=== PATIENT | female | born 1995 | race American Indian/Alaskan Native ===

== ENCOUNTER → 2018-10-15 | Outpatient (CLI) | payer BC | END | disposition home or self-care (01) | LOC: SLR 11:00 | PROVIDERS: ATTEND Specialist | DX: G47.33 Obstructive sleep apnea (adult) (pediatric) (principal); R40.0 Somnolence; R06.83 Snoring; E66.9 Obesity, unspecified | CPT/HCPCS: 95810 ==

== ENCOUNTER 2019-01-19 08:35 | Day surgery (SDC) | payer BC ==
[2019-01-19] MEDS ORDERED: PROPOFOL 200 MG/20 ML VIAL IV ONE ×2 (09:06)
--- NOTE | 2019-01-19 09:20 | Anesthesia Day of Surgery ---
Anesthesia Day of Surgery - Day of Surgery Patient Examined: Yes Patient H&P Reviewed: Yes Patient is NPO: Yes Beta Blockers: No Cardiac Clearance: No Pulmonary Clearance: No
--- NOTE | 2019-01-19 09:37 | Anesthesia Consultation ---
Anesthesia Consult and Med Hx Date of service: 01/19/19 - Airway Anesthetic Teeth Evaluation: Good ROM Head & Neck: Adequate Mental/Hyoid Distance: Adequate Mallampati Class: Class II Intubation Access Assessment: Good - Pulmonary Exam CTA: Yes - Cardiac Exam Cardiac Exam: RRR - Pre-Operative Health Status ASA Pre-Surgery Classification: ASA3 Proposed Anesthetic Plan: MAC (Obesity , diet controlled DM , GERD for MAC)
--- NOTE | 2019-01-19 09:56 | Short Stay Summary ---
Short Stay Documentation Date of service: 01/19/19 Narrative H&P: The patient presents for diagnostic colonoscopy for recurrent hematochezia. - History Past Medical History: GERD, other (morbid obesity) Past Surgical History: No surgical history Social history: no significant social history, single - Allergies and Medications Current Medications: Allergies No Known Allergies Allergy (Verified 01/19/19 09:07) Home Medications Medication Instructions Recorded Confirmed Last Taken Type Cyclobenzaprine 10 mg PO DAILY 01/19/19 01/19/19 12/16/18 History Kelnor 1-35 28 Tablet 01/19/19 01/18/19 History Naproxen 01/19/19 12/16/18 History Omeprazole 40 mg PO DAILY 01/19/19 01/19/19 01/13/19 History Active Medications Sodium Chloride (Nacl 0.9% 1000 Ml) 1,000 mls @ 50 mls/hr IV DIRECT KATIE Last Admin: 01/19/19 09:23 Dose: 50 mls/hr Documented by: - Physical exam General appearance: no acute distress, well-nourished, obese Integumentary: no rash, no growths, no abnormal pigmentation HEENT: Atraumatic, PERRLA, EOMI, Mucous membr. moist/pink Lungs: Clear to auscultation, Normal air movement Breasts: deferred Heart: Regular rate, Normal S1, Normal S2, No murmurs Gastrointestinal: normoactive bowel sounds, no tenderness, no distended, no masses, no guarding, no organomegaly, obese Female Genitourinary: deferred Rectal Exam: normal exam-external/orifice, normal rectal tone, no mass Extremities: no ischemia, pulses intact, pulses symmetrical, No edema, normal temperature, normal color, Full ROM Neurological: Normal gait, Normal speech, Strength at 5/5 X4 ext, Normal tone, Sensation intact, Cranial nerves 3-12 NL - Brief post op/procedure progress note Date of procedure: 01/19/19 Findings: see dictation Estimated blood loss: none Pathology: none Condition: stable - Disposition Condition at discharge: Good - Discharge Diagnoses (1) Hematochezia Status: Acute Short Stay Discharge Plan Activity: other (No driving for 24 hours) Weight Bearing Status: Full Weight Bearing Diet: regular Follow up with: JEANIE LIMON [Other] - 7 Days
--- NOTE | 2019-01-19 09:58 | Operative Report ---
Operative Report Operative Report: Date of procedure: 01/19/2019 Preprocedure diagnosis: Recurrent hematochezia Post procedure diagnosis: [Normal colon and terminal ileum] Procedure: Colonoscopy to the cecum and terminal ileum Endoscopist: Dr. Glez Anesthesia: Monitored anesthesia care per anesthesia department Estimated blood loss: 0 Medications: Monitored anesthesia care. See separate report by anesthesia for details. After careful discussion of the nature and purpose of the procedure as well as details of the technique risks benefits and alternatives the patient gave consent. Please see recent history and physical from the office. The patient was placed in the left lateral decubitus position and medicated per anesthesia. A rectal exam was performed sphincter tone was normal there were no masses palpable. The Olympus colonoscope was passed transanally and advanced under continuous direct vision without difficulty to the cecum. The colon was well prepared. The cecum was normal. The ileocecal valve was normal in appearance. The scope was advanced through the valve and into the distal 10 cm of ileum. The distal terminal ileum appeared completely normal. The ascending colon was normal and on forward and retroflexed views. The transverse colon, descending colon, and sigmoid colon were normal. The rectum was normal on forward and retroflexed views. The procedure was well-tolerated overall and the patient was observed in recovery. Conclusions: Normal colonoscopy to the cecum and terminal ileum. Plan: [Observation and reassurance. Office follow-up PRN] Signed electronically: Miguel Glez M.D.
[2019-01-19] MEDS ORDERED: SODIUM CHLORIDE 0.9% 1000 ML 1,000 ML IV SCH (10:00)
[2019-01-19 10:32] VITALS: BP 122/75
--- NOTE | 2019-01-19 10:51 | Post Anesthesia Evaluation ---
- Post Anesthesia Evaluation Patient Participated: Yes Airway Patent: Yes Stable Respiratory Function: Yes Nausea/Vomiting: No Temp > 96.8F: Yes Pain Manageable: Yes Adequeate Hydration: Yes Anesthesia Complications: No Block Receding Appropriately: Not Applicable Patient on Ventilator: No
[2019-01-19] MEDS ORDERED: LIDOCAINE MPF (2%) 20 MG/1 ML VIAL 5 ML ONE (14:00)
[2019-01-19] MEDS ORDERED: WATER FOR IRRIG STERILE 250 ML BOTTLE IR ONE (14:36)
== END 2019-01-19 08:36 | disposition home or self-care (01) ==
LOC: GIO 08:35
PROVIDERS: ATTEND Internal Medicine Gastroenterology
DX: K92.1 Melena (principal); Z79.899 Other long term (current) drug therapy
CPT/HCPCS: 45378; 81025; 82962; J2704; J7030